=== PATIENT | female | born 1950 | race Caucasian/White ===

== ENCOUNTER 2024-04-27 08:28 | Day surgery (SDC) | payer MEDICARE ==
[~2024-04-27] VITALS: Ht 157.5 cm; Wt 65.3 kg
[2024-04-27] MEDS ORDERED: LIDOCAINE 2% 100 MG/5 ML UJET TP ONE (09:08)
[2024-04-27] MEDS ORDERED: fentaNYL citrate 0.05 MG/ML VIAL ONE (09:08)
[2024-04-27] MEDS: fentaNYL citrate 0.05 MG/ML VIAL IVP ONE (09:18)
== END 2024-04-27 10:30 | disposition home or self-care (01) ==
LOC: MDS 08:28 → MMU 08:28 → MDS 10:30
PROVIDERS: ATTEND Internal Medicine Gastroenterology
DX: Z12.11 Encounter for screening for malignant neoplasm of colon (principal); K57.30 Diverticulosis of large intestine without perforation or abscess without bleeding; I10 Essential (primary) hypertension; E78.5 Hyperlipidemia, unspecified; K21.9 Gastro-esophageal reflux disease without esophagitis; M19.90 Unspecified osteoarthritis, unspecified site; M85.80 Other specified disorders of bone density and structure, unspecified site; E11.9 Type 2 diabetes mellitus without complications; Z86.010 Personal history of colon polyps; Z79.899 Other long term (current) drug therapy
CPT/HCPCS: 45378; J3010